=== PATIENT | female | born 1955 | race Caucasian/White ===

== ENCOUNTER 2016-05-17 19:18 | Emergency (ER) | payer OTHER ==
[~2016-05-17] VITALS: Ht 177.8 cm; Wt 117.0 kg
--- NOTE | 2016-05-17 21:29 | PHYS DOC ---
Past Medical History Past Medical History: Diabetes-Type II, Hypertension Past Surgical History: Appendectomy, Cholecystectomy, Hysterectomy Additional Past Surgical Histo: REMOVAL OF TRANSVAGINAL MESH X8 Alcohol Use: None Drug Use: None Adult General Chief Complaint Chief Complaint: Congestion HPI HPI Patient is a 60 year old female who presents with 1 days of cough, rhinorrhea, postnasal drip, fatigue, and chills with concern of influenza. She denies measured fever, chest pain, dyspnea, palpitations, diaphoresis, lightheadedness , leg pain or swelling, hemoptysis, abdominal pain, nausea or vomiting, diarrhea , dysuria. Her family member that is traveling with her his sick with similar illness. Review of Systems Review of Systems Constitutional: Denies measured fever [] Eyes: Denies change in visual acuity, redness, or eye pain [] HENT: Denies nasal congestion or sore throat [] Respiratory: Denies shortness of breath [] Cardiovascular: No additional information not addressed in HPI [] GI: Denies abdominal pain, nausea, vomiting, bloody stools or diarrhea [] : Denies dysuria or hematuria [] Musculoskeletal: Denies back pain or joint pain [] Integument: Denies rash or skin lesions [] Neurologic: Denies headache, focal weakness or sensory changes [] Endocrine: Denies polyuria or polydipsia [] Allergies Allergies Allergies Coded Allergies Type Severity Reaction Last Updated Verified Sulfa (Sulfonamide Antibiotics) Allergy Intermediate 05/17/16 Yes morphine Allergy Intermediate 05/17/16 Yes Physical Exam Physical Exam Constitutional: Well developed, well nourished, no acute distress, non-toxic appearance. [] HENT: Normocephalic, atraumatic, bilateral external ears normal, oropharynx moist, no oral exudates, nose normal. [] Eyes: PERRLA, EOMI, conjunctiva normal, no discharge. [] Neck: Normal range of motion, supple, no stridor. [] Cardiovascular:Heart rate regular rhythm [] Lungs & Thorax: Bilateral breath sounds clear to auscultation [] Abdomen: Bowel sounds normal, soft, no tenderness. [] Skin: Warm, dry, no erythema, no rash. [] Back: Normal range of motion. [] Extremities: ROM intact, no edema. [] Neurologic: Alert and oriented X 3, normal motor function, normal sensory function, no focal deficits noted. [] Psychologic: Affect normal, judgement normal, mood normal. [] Current Patient Data Vital Signs Vital Signs Date Time Temp Pulse Resp B/P Pulse Ox O2 Delivery O2 Flow Rate FiO2 05/17/16 20:10 98.1 89 20 96 Room Air 98.1 Lab Values Laboratory Tests Test 05/17/16 20:45 Influenza Type A Antigen Negative (NEGATIVE) Influenza Type B Antigen Negative (NEGATIVE) Course & Med Decision Making Course & Med Decision Making Pertinent Labs and Imaging studies reviewed. (See chart for details) Offered chest x-ray and ibuprofen or Tylenol for her symptoms, but she declined. She just wanted a flu swab which is negative. Her cousin however is positive for influenza A so will treat both of them with tamiflu. Discussed symptomatic care and recommended follow-up with primary care. Return precautions given. She understands and agrees with plan. Dragon Disclaimer Dragon Disclaimer This electronic medical record was generated, in whole or in part, using a voice recognition dictation system. Departure Departure Impression: Primary Impression: Influenza Disposition: 01 HOME, SELF-CARE Condition: STABLE Referrals: UNKNOWN PCP NAME (PCP) Patient Instructions: Influenza, Adult, [id number] Additional Instructions: Take Tamiflu to help shorten the duration of influenza. Take Tylenol or ibuprofen as needed for pain. Follow-up with your primary care doctor within one week. Return for any concerns. Scripts Oseltamivir Phosphate (Tamiflu)75 Mg Capsule1 Cap PO BID #[id number] CAP Prov:Reema ANDERSON MD 05/17/16 Reema ANDERSON MD May 17, 2016 21:30
[2016-05-17 21:54] LABS: OBC FLU VALID
[2016-05-17] MEDS ORDERED: OSEL75CA PO (22:13)
[2016-05-17 22:21] VITALS: BP 142/63
== END 2016-05-17 22:15 | disposition home or self-care (01) ==
LOC: ER 19:18
DX: J11.1 Influenza due to unidentified influenza virus with other respiratory manifestations (principal); I10 Essential (primary) hypertension; E11.9 Type 2 diabetes mellitus without complications; Z90.49 Acquired absence of other specified parts of digestive tract; Z90.710 Acquired absence of both cervix and uterus; Z88.2 Allergy status to sulfonamides; Z88.5 Allergy status to narcotic agent
CPT/HCPCS: 87804; 99284